=== PATIENT | female | born 1980 | race Two or more races ===

== ENCOUNTER 2016-11-03 10:53 | Emergency (ER) | payer OTHER ==
[~2016-11-03] VITALS: Ht 152.4 cm; Wt 52.2 kg
[2016-11-03 11:16] VITALS: BP 119/86
--- NOTE | 2016-11-03 11:42 | PHYS DOC ---
Past Medical History Past Medical History: No Pertinent History Past Surgical History: Other Additional Past Surgical Histo: KNEE/ right breast lumpectomy Alcohol Use: None Drug Use: None Adult General Chief Complaint Chief Complaint: FACE PROBLEM HPI HPI This pleasant 36-year-old female with a 3-4 day history of lancinating pain that originates from the base the neck to the scalp describes a sharp stabbing or electric-like feeling. She said the pain radiates to her right side of her neck and her ear on the right. She's had some tingling to her face as well with no weakness to her face. She denies any trauma, denies any fevers, denies any URI symptoms, she denies any rash on her face denies any change in vision denies a problems speaking, denies any nausea, vomiting, diarrhea, denies any recent travel outside the country, denies recent antibiotic. She acts has had a similar episode like this 3-4 months ago for which she was treated by her primary care doctor with loratadine that any improvement. Patient denies any loss of conscious, denies any throbbing headache, she also says the pain is worse with range of motion and direct pressure over that particular part of her scalp. Rising hearing loss, tinnitus, or sensation of movement. Review of Systems Review of Systems Constitutional: Denies fever or chills [] Eyes: Denies change in visual acuity, redness, or eye pain [] HENT: Denies nasal congestion or sore throat [] Respiratory: Denies cough or shortness of breath [] Cardiovascular: No additional information not addressed in HPI [] GI: Denies abdominal pain, nausea, vomiting, bloody stools or diarrhea [] : Denies dysuria or hematuria [] Musculoskeletal: Denies back pain or joint pain [] Integument: Denies rash or skin lesions [] Neurologic: Denies headache, focal weakness or she does have some sensory changes to her face is tingling without weakness. Endocrine: Denies polyuria or polydipsia [] Current Medications Current Medications Current Medications Medications (Trade) Dose Ordered Sig/Uriel Start Time Stop Time Status Last Admin Dose Admin Dexamethasone Sodium Phosphate (Decadron) 10 mg 1X ONCE 11/03/16 11:45 11/03/16 12:04 DC 11/03/16 12:08 10 MG Ketorolac Tromethamine (Toradol Im) 60 mg 1X ONCE 11/03/16 11:45 11/03/16 12:04 DC 11/03/16 12:09 60 MG Ondansetron HCl (Zofran Odt) 4 mg 1X ONCE 11/03/16 11:45 11/03/16 12:04 DC 11/03/16 12:09 4 MG Allergies Allergies Allergies Coded Allergies Type Severity Reaction Last Updated Verified No Known Drug Allergies 11/03/16 No Physical Exam Physical Exam Vital signs reviewed within normal limits. Constitutional: Well developed, well nourished, no acute distress, non-toxic appearance. [] HENT: Normocephalic, atraumatic, bilateral external ears normal, oropharynx moist, no oral exudates, nose normal. No evidence of rash, no tenderness to palpation over the tragus or movement of the external pinna. No tenderness to palpation over the sternomastoid in the right or the scalene muscles. Patient has full range of motion of the neck. She has mild tenderness to palpation over the occipital branch of the nerve supplying scalp. There is no obvious soft tissue swelling or underlying inflammation. Eyes: PERRLA, EOMI, conjunctiva normal, no discharge. [] Neck: Normal range of motion, no tenderness, supple, no stridor. [] Cardiovascular:Heart rate regular rhythm, no murmur [] Lungs & Thorax: Bilateral breath sounds clear to auscultation [] Skin: Warm, dry, no erythema, no rash. [] Back: No tenderness, no CVA tenderness. [] Extremities: No tenderness, no cyanosis, no clubbing, ROM intact, no edema. [] Neurologic: Alert and oriented X 3, normal motor function, normal sensory function, no focal deficits noted. Her cranial nerves II-12 are intact entirely with no evidence of facial weakness. Patient has sensation to light touch and appropriate retail center receptionist over the facial muscles. Psychologic: Affect normal, judgement normal, mood normal. [] Current Patient Data Vital Signs Vital Signs Date Time Temp Pulse Resp B/P (MAP) Pulse Ox O2 Delivery O2 Flow Rate FiO2 11/03/16 11:16 98.2 74 20 119/86 (97) 100 Room Air 98.2 Lab Values Laboratory Tests Test 11/03/16 12:11 POC Urine HCG, Qualitative Hcg negative (Negative) EKG EKG [] Radiology/Procedures Radiology/Procedures [] Repeat CT findings with radiology protection analyst said is no acute findings to be a sinus patient's symptoms. Negative head CT negative. Cervical spine CT. Would advise MRI as an outpatient. Course & Med Decision Making Course & Med Decision Making Pertinent Labs and Imaging studies reviewed. (See chart for details) She presents with what I believe might be expected neuralgia. In the differential diagnosis of ear pain includes otitis externa, otitis media, herpes ophthalmicus, localized trauma, sinusitis, cavernous venous thrombosis, intracranial mass, stroke, Dyer's palsy, atypical migraine or headache pattern. At this time patient be offered pain medications to include anti-inflammatory and steroid corticoid I will refer her to a primary care doctor that can do and arrange for a local injection of the occipital branch of the nerve supplying the scalp. She will have a head and cervical spine CT completed at this time although is no evidence of radiculopathy. [] Dragon Disclaimer Dragon Disclaimer This electronic medical record was generated, in whole or in part, using a voice recognition dictation system. 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 please follow up with your neurologist or have your PCP refer you to the specialist if necessary. Return for any question concerns or might have Scripts Acetaminophen (TYLENOL) 325 Mg Tablet 1 TAB PO QID, #60 TAB 2 Refills Prov: ENRIQUE NEAL MD 11/03/16 Naproxen (NAPROSYN) 500 Mg Tablet 1 TAB PO BID, #14 TAB 1 Refill Prov: ENRIQUE NEAL MD 11/03/16 Problem Qualifiers ENRIQUE NEAL MD Nov 03, 2016 11:42
[2016-11-03] MEDS ORDERED: DEXAMETHASONE SOD PHOS 20 MG/5 ML VIAL. IM ONE (11:45)
[2016-11-03] MEDS ORDERED: ONDANSETRON ODT 4 MG TAB.RAPDIS. PO ONE (11:45)
[2016-11-03] MEDS ORDERED: KETOROLAC TROMETHAMINE 60 MG/2 ML INJ. IM ONE (11:45)
[2016-11-03] MEDS ORDERED: ACET325T9 PO (14:17)
[2016-11-03] MEDS ORDERED: NAPR500T PO (14:17)
--- NOTE | 2016-11-03 14:20 | RAD ---
Indication neck and head pain. No history of trauma. Images of the head were obtained. No prior imaging of the head is available. Images of the cervical spine were reformatted in the coronal and sagittal planes. CT head: Findings. The calvarium appears unremarkable. The visualized paranasal sinuses appear normal. There is no subdural or epidural hematoma. The ventricles and sulci are normal. There is no mass or midline shift. No hemorrhage is seen. No acute intracranial finding is apparent. CT cervical spine: Findings The lung apices are clear. No significant soft tissue finding in the neck is seen. Review of axial images shows no acute bony finding. Significant degenerative changes are not seen on the reformatted images. It should be noted that CT is relatively insensitive evaluating for disc disease in the cervical spine and if further evaluation for potential disc disease is clinically warranted an MRI examination should be considered. IMPRESSION: No acute or significant intracranial finding seen. No acute or significant finding seen in the cervical spine PQRS Compliance Statement: One or more of the following individualized dose reduction techniques were utilized for this examination: 1. Automated exposure control 2. Adjustment of the mA and/or kV according to patient size 3. Use of iterative reconstruction technique
== END 2016-11-03 14:40 | disposition home or self-care (01) ==
LOC: ER 10:53
DX: M54.81 Occipital neuralgia (principal)
CPT/HCPCS: 70450; 72125; 81025; 96372; 99284; J1100; J1885; Q0162